=== PATIENT | male | born 1930 | race Caucasian/White ===

== ENCOUNTER 2016-06-26 15:35 | Emergency (ER) | payer OTHER, MEDICARE ==
[2016-06-26] MEDS ORDERED: ALBUTEROL SO4 0.083% IH SOL 2.5 MG/3 ML VIAL.NEB. NEB ONE (15:48)
--- NOTE | 2016-06-26 15:52 | PDOC ---
History of Present Illness - History of Present Illness Initial Comments: 06/26/16 15:52 The patient is a 85 year old male, with a significant past medical history of hypercholesterolemia and Afib (on warfarin), who presents to the emergency department with progressive cough and wheezing for about a week. He states his cough sounds wet but non-productive of sputum. He states his cough is especially exacerbated with deep inspiration.He reports his wheezing has been progressively worsening since the initial onset, but denies feeling short of breath. He denies chest pain, shortness of breath, headache and dizziness. He denies fever, chills, nausea, vomit, diarrhea and constipation. He denies dysuria, frequency, urgency and hematuria. Allergies: NKDA Social history: Pt admits to daily tobacco use. Denies alcohol consumption PCP - Dr. Asencio <Lacy Luna - Last Filed: 06/26/16 17:10> - General History Source: Patient, Spouse Exam Limitations: No Limitations <Jack Salomon - Last Filed: 06/26/16 17:24> - General Chief Complaint: Respiratory Stated Complaint: COUGH Time Seen by Provider: 06/26/16 15:47 Past History <Lacy Luna - Last Filed: 06/26/16 17:10> - Past Medical History Cardiac Disorders: Yes (A FIB) - Psycho/Social/Smoking Cessation Hx Anxiety: No Suicidal Ideation: No Smoking Status: Yes Smoking History: Never smoked Number of Cigarettes Smoked Daily: 4 'Breaking Loose' booklet given: 04/14/14 Hx Alcohol Use: No Substance Use Type: None <Jack Salomon - Last Filed: 06/26/16 17:24> - Past Medical History Allergies/Adverse Reactions: Allergies Allergy/AdvReac Type Severity Reaction Status Date / Time No Known Allergies Allergy Verified 06/26/16 16:42 Home Medications: Ambulatory Orders Atorvastatin Ca [Lipitor -] 10 mg PO DAILY 04/14/14 Warfarin Na [Coumadin] 1 mg PO DAILY 04/14/14 Albuterol Sulfate Inhaler - [Ventolin HFA Inhaler -] 1 - 2 inh PO Q4H PRN #1 inhaler 06/26/16 Azithromycin 250 mg PO DAILY #4 tablet 06/26/16 Folic Acid 06/26/16 Review of Systems - Review of Systems Able to Perform ROS?: Yes Comments:: 06/26/16 15:52 GENERAL/CONSTITUTIONAL: No fever or chills. No weakness. HEAD, EYES, EARS, NOSE AND THROAT: No change in vision. No ear pain or discharge. No sore throat. CARDIOVASCULAR: No chest pain or shortness of breath. RESPIRATORY: (+) cough, wheezing, No hemoptysis. GASTROINTESTINAL: No nausea, vomiting, diarrhea or constipation. GENITOURINARY: No dysuria, frequency, or change in urination. MUSCULOSKELETAL: No joint or muscle swelling or pain. No neck or back pain. SKIN: No rash NEUROLOGIC: No headache, vertigo, loss of consciousness, or change in strength/ sensation. ENDOCRINE: No increased thirst. No abnormal weight change. HEMATOLOGIC/LYMPHATIC: No anemia, easy bleeding, or history of blood clots. ALLERGIC/IMMUNOLOGIC: No hives or skin allergy. <Lacy Luna - Last Filed: 06/26/16 17:10> *Physical Exam - Physical Exam Comments: 06/26/16 15:53 GENERAL: Awake, alert, and fully oriented, in no acute distress HEAD: No signs of trauma EYES: PERRLA, EOMI, sclera anicteric, conjunctiva clear ENT: Auricles normal inspection, hearing grossly normal, nares patent, oropharynx clear without exudates. Moist mucosa NECK: Normal ROM, supple, no lymphadenopathy, JVD, or masses LUNGS: (+) wheezing and faint crackles at the bilateral bases. Breath sounds equal. HEART: Regular rate and rhythm, normal S1 and S2, no murmurs, rubs or gallops ABDOMEN: Soft, nontender, normoactive bowel sounds. No guarding, no rebound. No masses EXTREMITIES: Normal range of motion, no edema. No clubbing or cyanosis. No cords, erythema, or tenderness NEUROLOGICAL: Cranial nerves II-XII intact. Normal speech, normal gait. Sensation intact in upper and lower extremities. 5/5 motor strength in upper and lower extremities. No pronator drift. Finger to nose intact. Rapid alternations intact. SKIN: Warm, Dry, normal turgor, no rashes or lesions noted. <Lacy Luna - Last Filed: 06/26/16 17:10> ED Treatment Course - LABORATORY CBC & Chemistry Diagram: 06/26/16 15:45 06/26/16 15:45 - RADIOLOGY Radiograph Interpretation: 06/26/16 16:36 preliminary CXR read by Dr. Salomon at 16:34 Impression: peribronchial thickening suggestive for bronchitis. No new infiltrates appreciated on films. <Lacy Luna - Last Filed: 06/26/16 17:10> - LABORATORY CBC & Chemistry Diagram: 06/26/16 15:45 06/26/16 15:45 - RADIOLOGY Radiology Studies Ordered: Category Date Time Status CHEST PA & LAT [RAD] Stat Radiology 06/26/16 15:48 Ordered <Jack Salomon - Last Filed: 06/26/16 17:24> Medical Decision Making - Medical Decision Making 06/26/16 15:50 A portion of this note was documented by scribe services under my direction. I have reviewed the details of the note, within reason, and agree with the documentation with the following case summary and management plan written by me. Patient treated in the ED. Nursing notes are reviewed and incorporated into the medical decision-making. Vital signs reviewed. Peripheral IV access obtained by the nurse, laboratory studies are drawn and sent, reviewed and interpreted by myself. 85 year old male with past medical history of HLD, atrial fibrillation on coumadin p/w cough x 1 week. No recent travels or sick contacts. States has been having chest congestion but sputum production. Denies SOB, chest pain. Denies fevers. Reports wheezing with the coughing. Denies hx of asthma, but still is current smoker. Pt is nontoxic appearing and breathing comfortably. Will r/o PNA. Differential includes bronchitis. Pt's breath sounds are clear when not coughing, but wheezing on coughing. Will obtain labs, chest xray, trial nebs and reassess. 06/26/16 17:06 CBC, BMP 06/26/16 15:45 06/26/16 15:45 CMP Sodium 137 mmol/L (136-145) 06/26/16 15:45 Potassium 4.7 mmol/L (3.5-5.1) 06/26/16 15:45 Chloride 105 mmol/L (98-107) 06/26/16 15:45 Carbon Dioxide 23 mmol/L (22-28) 06/26/16 15:45 Anion Gap 9 (8-16) 06/26/16 15:45 BUN 19 mg/dl (7-18) H 06/26/16 15:45 Creatinine 1.0 mg/dl (0.6-1.3) 06/26/16 15:45 Creat Clearance w eGFR > 60 (>60) 06/26/16 15:45 Random Glucose 92 mg/dl (74-106) D 06/26/16 15:45 Calcium 8.7 mg/dl (8.4-10.2) 06/26/16 15:45 Total Bilirubin 0.9 mg/dl (0.2-1.0) D 06/26/16 15:45 AST 37 U/L (10-42) D 06/26/16 15:45 ALT 34 U/L (10-40) 06/26/16 15:45 Alkaline Phosphatase 79 U/L (32-92) 06/26/16 15:45 Total Protein 7.2 g/dl (6.4-8.3) 06/26/16 15:45 Albumin 4.4 g/dl (3.5-5.0) 06/26/16 15:45 Plts are 82. Pt given results of blood work, including thrombocytopenia. Pt will follow up with her PMD. Chest xray reviewed by me, pending official radiology read. No infiltrates. Will treat as bronchitis. Pt reports feeling significantly better with albuterol. Will d/c with azithromycin and albuterol. Pt will go home with . He reports feeling well. I discussed the physical exam findings, ancillary test results and final diagnoses with the patient. I answered all of the patient's questions. The patient was satisfied with the care received and felt comfortable with the discharge plan and treatment plan. The patient will call their primary care physician within 24 hours to arrange follow-up and will return to the Emergency Department with any new, persistant or worsening symptoms. <Jack Salomon - Last Filed: 06/26/16 17:24> *DC/Admit/Observation/Transfer - Attestations Scribe Attestion: 06/26/16 15:54 Documentation prepared by Lacy Luna, acting as medical record specialist for Jack Salomon MD, <Lacy Luna - Last Filed: 06/26/16 17:10> - Discharge Dispostion Admit: No <Jack Salomon - Last Filed: 06/26/16 17:24> Diagnosis at time of Disposition: Bronchitis - Discharge Dispostion Disposition: HOME Condition at time of disposition: Improved - Prescriptions Prescriptions: Azithromycin 250 mg PO DAILY #4 tablet Albuterol Sulfate Inhaler - [Ventolin HFA Inhaler -] 1 - 2 inh PO Q4H PRN #1 inhaler PRN Reason: Wheezing - Referrals Referrals: Kyle Asencio [Primary Care Provider] - - Patient Instructions Printed Discharge Instructions: Smoking Cessation for Older Adults: It's Not Too Late!, Platelet Count, DI for Acute Bronchitis Additional Instructions: Please call back to the ER for the official results of the x-ray. Call [phone]. Please take the azithromycin as prescribed. Also noted is a low platelet count. At this time, please bring the competitions results your doctor and follow-up.
[2016-06-26 16:31] LABS: BASOPHIL 0.2 % (0-2.0); EOSINOPHIL 4.3 % (0-4.5); MCH 34.9 pg (25.7-33.7); MCHC 33.9 g/dl (32.0-35.9); MEAN CELL VOLUME 103.1 fl (80-96); MEAN PLT VOLUME 9.4 fl (7.5-11.1); NEUTROPHILS 47.1 % (42.8-82.8); PLATELET COUNT 82 K/MM3 (134-434); RDW 13.1 % (11.9-15.9); WHITE BLOOD COUNT 4.5 K/mm3 (4.0-10.8)
[2016-06-26] MEDS ORDERED: AZITHROMYCIN 250 MG TABLET (FP) PO ONE ×2 (16:32→17:20)
[2016-06-26 16:34] VITALS: BP 154/107; PULSE 75; TEMP 97.4; BMI 28.8
[2016-06-26 16:56] LABS: ALBUMIN 4.4 g/dl (3.5-5.0); ALK PHOS 79 U/L (32-92); ANION GAP 9 (8-16); BILIRUBIN,TOTAL 0.9 mg/dl (0.2-1.0); CALCIUM 8.7 mg/dl (8.4-10.2); CO2 23 mmol/L (22-28); GLUCOSE,RANDOM 92 mg/dl (74-106); SGOT/AST 37 U/L (10-42); SGPT/ALT 34 U/L (10-40); TOT PROT 7.2 g/dl (6.4-8.3)
== END 2016-06-26 17:29 | disposition home or self-care (01) ==
LOC: FER 15:35
PROC: 3E0F7GC Introduction of Other Therapeutic Substance into Respiratory Tract, Via Natural or Artificial Opening (ICD-10-PCS; principal; 2016-06-26)
DX: J40 Bronchitis, not specified as acute or chronic (principal); I48.91 Unspecified atrial fibrillation; E78.00 Pure hypercholesterolemia, unspecified; Z79.01 Long term (current) use of anticoagulants; Z72.0 Tobacco use
CPT/HCPCS: 36415; 71020-TC; 80053; 85025; 94640; 99282-25

== ENCOUNTER 2016-08-19 10:37 | Emergency (ER) | payer OTHER, MEDICARE ==
[2016-08-19 10:57] VITALS: BP 131/89; PULSE 93; TEMP 97; BMI 26.9
--- NOTE | 2016-08-19 11:24 | PDOC ---
Attending Attestation - Resident Resident Name: Jackie Yanez - ED Attending Attestation I have performed the following: I have examined & evaluated the patient, The case was reviewed & discussed with the resident, I agree w/resident's findings & plan, Exceptions are as noted - HPI HPI: 08/19/16 11:22 The patient is an 85-year-old male, anticoagulated with Coumadin, who presents with left knee pain status post mechanical fall. He denies head trauma or any other injuries secondary to the fall. He is been able to ambulate. There has been no bleeding. - Physicial Exam PE: 08/19/16 11:23 He is well-appearing and in no acute distress No evidence of knee effusion or expansile hematoma No significant bony tenderness - Medical Decision Making 08/19/16 11:23 He is well-appearing and in no acute distress Will obtain plain XRay
--- NOTE | 2016-08-19 11:49 | PDOC ---
History of Present Illness - General Chief Complaint: Pain, Acute Stated Complaint: LEFT KNEE PAIN Time Seen by Provider: 08/19/16 10:50 History Source: Patient Exam Limitations: No Limitations - History of Present Illness Initial Comments: 08/19/16 11:42 This is an 85 yo M with pmh of CVA with residual balance problems and a-fib (on coumadin), who presents due to L knee pain s/p mechanical fall. Patient slipped and fell yesterday on to carpeted floor, hitting only his L knee. He denies LOC or trauma to any other body parts. He was able to get up and walk shorty after the incident. He complains of mild anterior knee pain when weight bearing but denies edema, numbness, weakness or limitation in ROM. He denies chest pain, sob , f/c, n/v, diarrhea, abd pain, dysuria. Past History - Past Medical History Allergies/Adverse Reactions: Allergies Allergy/AdvReac Type Severity Reaction Status Date / Time No Known Allergies Allergy Verified 08/19/16 10:39 Home Medications: Ambulatory Orders Atorvastatin Ca [Lipitor -] 10 mg PO DAILY 04/14/14 Warfarin Na [Coumadin] 1 mg PO DAILY 04/14/14 Cardiac Disorders: Yes (A FIB) Hypercholesterolemia: Yes - Psycho/Social/Smoking Cessation Hx Anxiety: No Suicidal Ideation: No Smoking Status: Yes Smoking History: Never smoked Have you smoked in the past 12 months: Yes Number of Cigarettes Smoked Daily: 4 Information on smoking cessation initiated: No 'Breaking Loose' booklet given: 04/14/14 Hx Alcohol Use: No Drug/Substance Use Hx: No Substance Use Type: None Review of Systems - Review of Systems Able to Perform ROS?: Yes Is the patient limited Sami proficient: No Constitutional: No: Chills, Fever HEENTM: No: Blurred Vision, Double Vision, Nose Congestion, Throat Pain Respiratory: No: Cough, Orthopnea, Shortness of Breath Cardiac (ROS): No: Chest Pain, Edema, Lightheadedness, Syncope ABD/GI: No: Abdominal Distended, Constipated, Diarrhea, Nausea, Rectal Bleeding , Vomiting, Abdominal cramping, Tarry Stools : No: Dysuria, Flank Pain Musculoskeletal: Yes: Joint Pain (L knee ). No: Back Pain, Joint Swelling, Muscle Pain, Muscle Weakness, Joint Stiffness Integumentary: No: Bruising, Lesions Neurological: Yes: Unsteady Gait. No: Headache, Numbness, Paresthesia, Ataxia Psychiatric: No: Anxiety, Depression Endocrine: No: Change in Weight Hematologic/Lymphatic: Yes: Easy Bleeding, Easy Bruising. No: Anemia, Blood Clots All Other Systems: Reviewed and Negative *Physical Exam - Vital Signs Last Vital Signs Temp Pulse Resp BP Pulse Ox 97 F L 93 H 16 131/89 98 08/19/16 10:38 08/19/16 10:38 08/19/16 10:38 08/19/16 10:38 08/19/16 10:38 - Physical Exam Comments: 08/19/16 11:47 GENERAL: NAD, AAOx3 HEENT: normocephalic, atraumatic, PERRLA EOMI, sclera anicteric, conjunctiva clear CV: RRR S1S2 PULM: CTA b/l GI: soft, nontender. normoactive bowel sounds. no mass SKIN: no lesions L knee: nonedematous, mild anterior tenderness, no echymoses, no limitation in rom, no pain with motion, negative ant/post draweer test, negative valgus/varus test. Neuro: LE strength 5/5 b/l, sensation intact b/l ED Treatment Course - RADIOLOGY Radiology Studies Ordered: Category Date Time Status KNEE 3 POS-LEFT [RAD] Stat Radiology 08/19/16 11:32 Ordered Medical Decision Making - Medical Decision Making 08/19/16 11:49 08/19/16 11:49 Patient presents with clinical picture most consistent with mechanical fall causing mild L knee contusion. Pain with weight bearing is slightly suspicious for fracture. will x ray L knee. 08/19/16 12:02 X ray L knee no fracture. *DC/Admit/Observation/Transfer Diagnosis at time of Disposition: Contusion of left knee - Discharge Dispostion Disposition: HOME Condition at time of disposition: Good Admit: No - Patient Instructions Additional Instructions: You suffered a contusion of your left knee, there is no fracture on x ray. You may ice it if it continues hurting. If the knee swells up, becomes difficult to move or if pain increases, please return to ER
== END 2016-08-19 12:14 | disposition home or self-care (01) ==
LOC: FER 10:37
DX: S80.02XA Contusion of left knee, initial encounter (principal); I48.91 Unspecified atrial fibrillation; Z79.01 Long term (current) use of anticoagulants; Z72.0 Tobacco use; W18.39XA Other fall on same level, initial encounter; Y93.89 Activity, other specified; Y92.9 Unspecified place or not applicable; I69.398 Other sequelae of cerebral infarction; E78.00 Pure hypercholesterolemia, unspecified
CPT/HCPCS: 73562-TC-LT; 99282-25